=== PATIENT | male | born 1995 | race Caucasian/White ===

== ENCOUNTER 2022-05-26 11:51 | Emergency (ER) | payer BC, OTHER ==
[~2022-05-26] VITALS: Ht 165.1 cm; Wt 59.0 kg
[2022-05-26 11:55] VITALS: BP_SYST 118
--- NOTE | 2022-05-26 12:00 | NUR ---
DR. COHEN AT BEDSIDE TO ASSESS PT.
--- NOTE | 2022-05-26 12:00 | NUR ---
Placed in room 04 . Placed on seafood packer, blood pressure machine and pulse oximeter. To gown for exam. Side rails up. Report given to EBONY COMER.
--- NOTE | 2022-05-26 12:11 | NUR ---
[facility] AT THE BEDSIDE FOR BLOOD DRAW
--- NOTE | 2022-05-26 12:15 | NUR ---
IV CATH TO RFA 20G AND IV CATH TO LFA 18G PLACED, FLUSHED, PATENT, SITE WNL.
[2022-05-26] MEDS ORDERED: NITROGLYCERIN 1 INCH (GM) OINT. TP ONE ×2 (12:18→23:30)
[2022-05-26 12:25] LABS: BASOPHILS # (AUTO) 0.1 K/uL (0.0-0.2); BASOPHILS % (AUTO) 1.3 % (0.0-2.0); EOSINOPHILS # (AUTO) 0.9 K/uL (0.0-0.4); HEMATOCRIT 43.3 % (36-54); HEMOGLOBIN 14.8 g/dL (14.0-18.0); LYMPHOCYTES # (AUTO) 2.3 K/uL (1.0-5.5); LYMPHOCYTES % (AUTO) 32.8 % (20.5-51.5); MEAN CORPUSCULAR HEMOGLOBIN 33 pg (27-31); MEAN CORPUSCULAR HGB CONC 34 % (32-36); MEAN CORPUSCULAR VOLUME 96 fL (79.0-98.0); MONOCYTES # (AUTO) 0.3 K/uL (0.0-1.0); MONOCYTES % (AUTO) 4.3 % (1.7-9.3); NEUTROPHILS # (AUTO) 3.4 K/uL (1.8-7.7); NEUTROPHILS % (AUTO) 48.6 % (40.0-70.0); PLATELET COUNT (AUTO) 215 K/uL (130-430); RED BLOOD CELL COUNT(AUTO) 4.53 MIL/uL (4.2-6.2); RED CELL DISTRIBUTION WIDTH 13.7 % (9.0-15.0)
[2022-05-26] MEDS ORDERED: ASPIRIN 325 MG TABLET PO ONE (12:30)
[2022-05-26] MEDS ORDERED: MORPHINE 4 MG INJ. 4 MG/ML VIAL IVP ONE ×2 (12:30→23:30)
[2022-05-26 12:37] LABS: CALCIUM 9.2 mg/dL (8.4-11.0); CREATININE 0.94 mg/dL (0.55-1.30)
--- NOTE | 2022-05-26 12:38 | NUR ---
NITRO PASTE APPLIED TO LEFT UPPER CHEST, MORPHINE 4MG IVP GIVEN. ASA 325MG PO GIVEN.
[2022-05-26 12:42] LABS: ALBUMIN 4.4 g/dL (3.4-4.8); TOTAL BILIRUBIN 0.9 mg/dL (0.0-1.0)
--- NOTE | 2022-05-26 13:00 | NUR ---
911 HERE FOR PICKUP
[2022-05-26 13:05] VITALS: BP_SYST 134
--- NOTE | 2022-05-26 13:06 | NUR ---
PT TRANSFERRED HOSPITAL VIA [facility], [facility] CALLED AND REPORT GIVEN TO EBONY STRONG.
== END 2022-05-26 13:05 | disposition short-term general hospital (02) ==
LOC: SED 11:51
DX: R07.9 Chest pain, unspecified (principal); I21.19 ST elevation (STEMI) myocardial infarction involving other coronary artery of inferior wall; I10 Essential (primary) hypertension; Z79.899 Other long term (current) drug therapy
CPT/HCPCS: 99285; 96374; 71045; 80053; 83880; 85025; 85379; 84484; 36415; J2270